=== PATIENT | male | born 1935 | race Caucasian/White ===

== ENCOUNTER 2017-10-08 19:14 | Emergency (ER) | payer MEDICARE ==
[~2017-10-08 19:14] MED LIST: ALBUTEROL NEB; ASPI-1197 PO; CARV3.12 PO; FURO40TA5 PO; INSLAN SQ; MAGNESIUM PO; PANT40TA25 PO; POTA10TA14 PO; PRAV40TA3 PO; RANO500T2 PO; RIVA20TA PO; SPIR25TA PO; SYMBICORT PO; TIOT18CA3 IH
[2017-10-08 20:20] LABS: BASOPHILS % (AUTO) 0.9 % (0.0-5.0); HEMATOCRIT 39.1 % (42-54); LYMPHOCYTES % (AUTO) 10.1 % (21.0-51.0); MEAN CORPUSCULAR HEMOGLOBIN 33.2 pg (27.0-33.0); MEAN CORPUSCULAR HGB CONC 33.1 g/dL (32.0-36.0); MEAN CORPUSCULAR VOLUME 100.4 fL (79-99); MONOCYTES % (AUTO) 11.1 % (3.0-13.0); NEUTROPHILS % (AUTO) 75.9 % (40.0-77.0); PLATELET COUNT (AUTO) 161 K/uL (130-400); WHITE BLOOD COUNT (AUTO) 11.1 K/uL (4.8-10.8)
[2017-10-08 21:17] LABS: CARBON DIOXIDE 31 mmol/L (21-32); CHLORIDE 98 mmol/L (101-111); CREATININE 1.7 mg/dL (0.5-1.5); GLOMERULAR FILTR. RATE CALC 41 mL/min (>60); GLUCOSE,RANDOM 108 mg/dL (70-105); POTASSIUM 3.7 mmol/L (3.5-5.1); SODIUM SERUM 135 mmol/L (136-145); UREA NITROGEN, BLOOD 25 mg/dL (7-18)
[2017-10-08 21:30] LABS: ALANINE AMINOTRANSFERASE 23 U/L (12-78); ALBUMIN 2.9 g/dL (3.5-5.0); ASPARTATE AMINOTRANSFERASE 27 U/L (10-37); BILIRUBIN,TOTAL 1.4 mg/dL (0.2-1.0); CREATINE KINASE MB < 0.5 ng/mL (0.5-3.6); CREATINE KINASE, TOTAL 70 U/L (21-232); TOTAL PROTEIN, SERUM 6.7 g/dL (6.0-8.3)
[2017-10-08] MEDS ORDERED: ONDANSETRON HCL 4 MG/2 ML VIAL ONE (21:58)
[2017-10-08] MEDS ORDERED: MORPHINE SULFATE 2 MG/ML 1ML SYG ONE ×2 (21:59→22:15)
[2017-10-08] MEDS ORDERED: FUROSEMIDE 10 MG/ML 4ML VIAL ONE (21:59)
[2017-10-08] MEDS ORDERED: GUAIFENESIN-CODEINE 5 ML SYRUP ONE ×2 (22:00→22:07)
== END 2017-10-08 22:28 | disposition home or self-care (01) ==
LOC: EDH 19:14
DX: M10.9 Gout, unspecified (principal); I50.9 Heart failure, unspecified; R05 Cough; J44.9 Chronic obstructive pulmonary disease, unspecified; I25.810 Atherosclerosis of coronary artery bypass graft(s) without angina pectoris; E11.9 Type 2 diabetes mellitus without complications; Z95.1 Presence of aortocoronary bypass graft; Z87.891 Personal history of nicotine dependence; Z85.118 Personal history of other malignant neoplasm of bronchus and lung; Z85.528 Personal history of other malignant neoplasm of kidney
CPT/HCPCS: 36415; 71045; 80053; 82550; 82553; 83880; 84484; 85025; 87804 ×2; 93005; 94761; 96374; 96375; 99285; J1940; J2405

== ENCOUNTER 2017-10-31 12:08 | Inpatient (IN) | payer MEDICARE ==
[~2017-10-31] VITALS: Ht 175.3 cm; Wt 83.6 kg
[2017-10-31 12:34] LABS: BASOPHILS % (AUTO) 0.8 % (0.0-5.0); EOSINOPHILS % (AUTO) 1.1 % (0.0-8.0); HEMATOCRIT 40.9 % (42-54); LYMPHOCYTES % (AUTO) 7.2 % (21.0-51.0); MEAN CORPUSCULAR HEMOGLOBIN 33.5 pg (27.0-33.0); MEAN CORPUSCULAR HGB CONC 34.2 g/dL (32.0-36.0); MONOCYTES % (AUTO) 2.7 % (3.0-13.0); NEUTROPHILS % (AUTO) 88.2 % (40.0-77.0); PLATELET COUNT (AUTO) 135 K/uL (130-400); RED BLOOD CELL COUNT(AUTO) 4.17 MIL/uL (4.50-6.20); WHITE BLOOD COUNT (AUTO) 8.4 K/uL (4.8-10.8)
[2017-10-31 12:41] LABS: CREATININE 1.7 mg/dL (0.5-1.5)
[2017-10-31 12:43] LABS: INR 1.07 (0.85-1.15); PARTIAL THROMBOPLASTIN TIME 28.9 SEC (26.3-35.5); PROTHROMBIN TIME 11.2 SEC (9.6-11.6)
[2017-10-31 12:55] LABS: ALBUMIN 3.3 g/dL (3.5-5.0); B-TYPE NATRIURETIC PEPTIDE 504 pg/mL (0-100); BILIRUBIN,TOTAL 1.6 mg/dL (0.2-1.0); CREATINE KINASE MB 0.6 ng/mL (0.5-3.6); TOTAL PROTEIN, SERUM 7.4 g/dL (6.0-8.3)
[2017-10-31 13:48] LABS: APPEARANCE,URINE CLEAR (CLEAR); BILIRUBIN,URINE NEGATIVE (NEGATIVE); COLOR,URINE YELLOW (YELLOW); GLUCOSE, URINE (UA) NEGATIVE (NEGATIVE); KETONES,URINE NEGATIVE (NEGATIVE); LEUKOCYTE ESTERASE ,URINE NEGATIVE (NEGATIVE); NITRATE,URINE NEGATIVE (NEGATIVE); OCCULT BLOOD,URINE NEGATIVE (NEGATIVE); PROTEIN,URINE TRACE (NEGATIVE)
[2017-10-31] MEDS ORDERED: BENZONATATE 100 MG CAPSULE PO ONE (13:56)
[2017-10-31] MEDS ORDERED: FUROSEMIDE 10 MG/ML 4ML VIAL ONE (13:56)
[2017-10-31] MEDS ORDERED: METHYLPREDNISOLONE SOD SUCC 40MG/ML 1ML ONE (13:56)
[2017-10-31] MEDS ORDERED: IPRATROPIUM/ALBUTEROL SULFATE 3 ML SOLUTION IH ONE (14:13)
[2017-10-31] MEDS ORDERED: LACTULOSE 20 GM/30 ML UDCUP PO PRN (14:15)
[2017-10-31] MEDS ORDERED: ACETAMINOPHEN 325 MG TAB PO PRN ×2 (14:15)
[2017-10-31] MEDS ORDERED: MAG HYDROX/AL HYDROX/SIMETH ES 30 ML SUSP UDCUP PO PRN (14:15)
[2017-10-31] MEDS ORDERED: POTASSIUM CHLORIDE 10% ELIXIR 20 MEQ/15 ML UDCUP PO PRN (14:15)
[2017-10-31] MEDS ORDERED: GUAIFENESIN-DM 200/20 MG 10 ML PO PRN (14:15)
[2017-10-31] MEDS ORDERED: POTASSIUM CHLORIDE 20MEQ/100ML 100 ML IV PRN (14:15)
[2017-10-31] MEDS ORDERED: MORPHINE SULFATE 2 MG/ML 1ML SYG IV PRN (14:15)
[2017-10-31] MEDS ORDERED: LIDOCAINE HCL-MPF 1% 2ML VIAL IVP PRN (14:15)
[2017-10-31] MEDS ORDERED: POTASSIUM CHLORIDE 20 MEQ ERTAB PO PRN (14:15)
[2017-10-31] MEDS ORDERED: NITROGLYCERIN 0.4 MG SL TAB SL PRN (14:15)
[2017-10-31] MEDS: METHYLPREDNISOLONE SOD SUCC 125MG/2ML VIAL IV SCH ×2 (14:15→21:21)
[2017-10-31] MEDS: DOXYCYCLINE 100MG+NS 250ML 250 ML IV SCH (14:15)
[2017-10-31] MEDS ORDERED: MORPHINE SULFATE 4 MG/1ML SYG IV PRN (14:15)
[2017-10-31] MEDS ORDERED: ONDANSETRON HCL 4 MG/2 ML VIAL IV PRN (14:15)
[2017-10-31] MEDS ORDERED: HYDRALAZINE HCL 20 MG/ML VIAL IV PRN (14:15)
[2017-10-31] MEDS ORDERED: ACETAMINOPHEN-CODEINE 300/30MG TAB PO PRN ×2 (14:15)
[2017-10-31 14:17] LABS: BACTERIA,URINE None Seen /HPF (None Seen); MUCUS,URINE Few LPF (None Seen); RBC,URINE None Seen /HPF (0-1); SQUAMOUS EPITHELIAL CELL,UR 0-2 /LPF (0-2); WBC,URINE None Seen /HPF (0-1)
[2017-10-31] MEDS: INSULIN HUMULIN R 100 UNIT/ML 3ML SQ SCH ×2 (16:30→21:39)
[2017-10-31] MEDS ORDERED: DOXYCYCLINE 100MG+NS 250ML 250 ML IV ONE (16:55)
[2017-10-31 17:35] VITALS: BP 103/60
[2017-10-31] MEDS ORDERED: IPRATROPIUM 0.5 MG/2.5 ML INH IH SCH (18:00)
[2017-10-31] MEDS: IPRATROPIUM/ALBUTEROL SULFATE 3 ML SOLUTION IH SCH (19:01)
[2017-10-31 19:19] VITALS: BP 117/68
[2017-10-31] MEDS: FUROSEMIDE 10 MG/ML 2ML VIAL IV SCH (21:21)
[2017-10-31] MEDS: FAMOTIDINE/PF 20 MG/2 ML VIAL IV SCH (21:21)
[2017-10-31] MEDS: BENZONATATE 100 MG CAPSULE PO SCH (21:22)
[2017-10-31] MEDS: CARVEDILOL 3.125 MG TABLET PO SCH (21:22)
[2017-10-31] MEDS: RIVAROXABAN 20 MG TABLET PO SCH (21:22)
[2017-10-31] MEDS: RANOLAZINE 500 MG TAB.SR.12H PO SCH (21:22)
[2017-10-31] MEDS: GUAIFENESIN-CODEINE 5 ML SYRUP PO PRN (21:37)
[2017-10-31] MEDS: INSULIN GLARGINE 100 UNITS/ML 10 ML VIAL SQ SCH (21:40)
[2017-10-31 23:28] VITALS: BP 120/66
[2017-11-01] MEDS ORDERED: DOXYCYCLINE 100MG+NS 250ML 250 ML IV ONE (01:33)
[2017-11-01] MEDS: DOXYCYCLINE 100MG+NS 250ML 250 ML IV SCH ×2 (01:40→13:47)
[2017-11-01] MEDS: ACETYLCYSTEINE 20% 200MG/ML 4ML VIAL IH SCH ×3 (01:46→11:31)
[2017-11-01] MEDS: IPRATROPIUM/ALBUTEROL SULFATE 3 ML SOLUTION IH SCH ×5 (01:46→23:37)
[2017-11-01 03:36] VITALS: BP 104/57
[2017-11-01 06:38] LABS: HEMATOCRIT 38.9 % (42-54); MEAN CORPUSCULAR HGB CONC 34.4 g/dL (32.0-36.0); NUCLEATED RED BLOOD CELLS 0.1 % (0.0-0.19); PLATELET COUNT (AUTO) 141 K/uL (130-400); RED BLOOD CELL COUNT(AUTO) 3.93 MIL/uL (4.50-6.20); RED CELL DISTRIBUTION WIDTH 17.1 % (11.0-15.5); WHITE BLOOD COUNT (AUTO) 4.4 K/uL (4.8-10.8)
[2017-11-01 06:41] VITALS: BP 110/56
[2017-11-01 06:48] LABS: CREATININE 1.9 mg/dL (0.5-1.5)
[2017-11-01] MEDS: INSULIN HUMULIN R 100 UNIT/ML 3ML SQ SCH ×4 (08:23→21:00)
[2017-11-01] MEDS: METHYLPREDNISOLONE SOD SUCC 125MG/2ML VIAL IV SCH ×2 (08:24→13:47)
[2017-11-01] MEDS: ASPIRIN 81MG TAB.CHEW PO SCH (08:52)
[2017-11-01] MEDS: GUAIFENESIN-CODEINE 5 ML SYRUP PO PRN (08:52)
[2017-11-01] MEDS: FAMOTIDINE/PF 20 MG/2 ML VIAL IV SCH (08:52)
[2017-11-01] MEDS: BENZONATATE 100 MG CAPSULE PO SCH ×2 (08:52→13:47)
[2017-11-01] MEDS: FUROSEMIDE 10 MG/ML 2ML VIAL IV SCH ×2 (08:52→09:32)
[2017-11-01] MEDS: RANOLAZINE 500 MG TAB.SR.12H PO SCH (08:53)
[2017-11-01] MEDS: CARVEDILOL 3.125 MG TABLET PO SCH (08:53)
[2017-11-01] MEDS ORDERED: ENOXAPARIN SODIUM 30 MG/0.3 ML SQ SCH (09:00)
[2017-11-01] MEDS ORDERED: ALLO100T PO (09:11)
[2017-11-01] MEDS ORDERED: AEC81 PO (09:11)
[2017-11-01] MEDS ORDERED: OMEP20TA2 PO (09:11)
[2017-11-01] MEDS ORDERED: MAGOX PO (09:11)
[2017-11-01] MEDS ORDERED: FLUT16H NASAL (09:11)
[2017-11-01] MEDS ORDERED: APIX2.5T PO (09:11)
[2017-11-01] MEDS ORDERED: BUDE10.22 IH (09:11)
[2017-11-01] MEDS ORDERED: CARV3.1262 PO (09:11)
[2017-11-01] MEDS ORDERED: SPIR25TA PO (09:11)
[2017-11-01] MEDS ORDERED: FURO20TA6 PO (09:11)
[2017-11-01 12:00] VITALS: BP 122/71
[2017-11-01 16:00] VITALS: BP 125/61
[2017-11-01] MEDS ORDERED: MORPHINE SULFATE 4 MG/1ML SYG IV PRN (16:15)
[2017-11-01 20:00] VITALS: BP 120/75
[2017-11-01] MEDS: INSULIN GLARGINE 100 UNITS/ML 10 ML VIAL SQ SCH (21:00)
[2017-11-02] VITALS: BP 130/78
[2017-11-02] MEDS: INSULIN GLARGINE 100 UNITS/ML 10 ML VIAL SQ SCH
[2017-11-02] MEDS: FAMOTIDINE/PF 20 MG/2 ML VIAL IV SCH ×2 (00:18→10:35)
[2017-11-02] MEDS: GUAIFENESIN-CODEINE 5 ML SYRUP PO PRN (00:19)
[2017-11-02] MEDS: RANOLAZINE 500 MG TAB.SR.12H PO SCH ×2 (00:19→10:38)
[2017-11-02] MEDS: CARVEDILOL 3.125 MG TABLET PO SCH ×2 (00:19→09:00)
[2017-11-02] MEDS: BENZONATATE 100 MG CAPSULE PO SCH ×2 (00:19→10:33)
[2017-11-02] MEDS: METHYLPREDNISOLONE SOD SUCC 125MG/2ML VIAL IV SCH ×2 (00:20→07:41)
[2017-11-02] MEDS: RIVAROXABAN 20 MG TABLET PO SCH (00:20)
[2017-11-02] MEDS: FUROSEMIDE 10 MG/ML 2ML VIAL IV SCH (00:20)
[2017-11-02] MEDS: DOXYCYCLINE 100MG+NS 250ML 250 ML IV SCH (02:39)
[2017-11-02 04:00] VITALS: BP 122/75
[2017-11-02 04:32] LABS: HEMATOCRIT 41.4 % (42-54); MEAN CORPUSCULAR HEMOGLOBIN 33.6 pg (27.0-33.0); MEAN CORPUSCULAR HGB CONC 33.7 g/dL (32.0-36.0); MEAN CORPUSCULAR VOLUME 99.6 fL (79-99); PLATELET COUNT (AUTO) 153 K/uL (130-400); RED BLOOD CELL COUNT(AUTO) 4.16 MIL/uL (4.50-6.20); WHITE BLOOD COUNT (AUTO) 13.5 K/uL (4.8-10.8)
[2017-11-02 04:42] LABS: CREATININE 2.3 mg/dL (0.5-1.5); POTASSIUM 4.1 mmol/L (3.5-5.1)
[2017-11-02 04:59] LABS: B-TYPE NATRIURETIC PEPTIDE 347 pg/mL (0-100)
[2017-11-02] MEDS: IPRATROPIUM 0.5 MG/2.5 ML INH IH SCH ×2 (06:24→11:12)
[2017-11-02] MEDS: INSULIN HUMULIN R 100 UNIT/ML 3ML SQ SCH ×3 (07:43→12:50)
[2017-11-02 07:44] VITALS: BP 130/74
[2017-11-02] MEDS ORDERED: FLUTICASONE PROPIONATE 50MCG/SPRAY 16 GM BOTTLE EN PRN (08:15)
[2017-11-02] MEDS ORDERED: ASPIRIN 81 MG EC TAB PO SCH (09:00)
[2017-11-02] MEDS ORDERED: ALLOPURINOL 100 MG TABLET PO SCH (09:00)
[2017-11-02] MEDS: ASPIRIN 81MG TAB.CHEW PO SCH (09:00)
[2017-11-02] MEDS ORDERED: CARVEDILOL 3.125 MG TABLET PO SCH (09:00)
[2017-11-02] MEDS ORDERED: METHYLPREDNISOLONE SOD SUCC 125MG/2ML VIAL IV SCH (09:00)
[2017-11-02] MEDS ORDERED: SPIRONOLACTONE 25 MG TAB PO SCH (09:00)
[2017-11-02 11:00] VITALS: BP 109/67
[2017-11-02] MEDS ORDERED: ALBUTEROL SULFATE 0.083% 2.5 MG/3 ML INH IH SCH (12:00)
[2017-11-02] MEDS ORDERED: FURO40TA5 PO (15:57)
[2017-11-02] MEDS ORDERED: BUDE10.2 IH (15:57)
[2017-11-02] MEDS ORDERED: ROBITUSSIN AC PO (16:01)
[2017-11-02] MEDS ORDERED: PRED20TA3 PO (16:01)
[2017-11-02] MEDS ORDERED: IPRNEB IH (16:01)
[2017-11-02] MEDS ORDERED: PRED10TA3 PO (16:01)
[2017-11-02] MEDS ORDERED: DOXY100C2 PO (16:01)
[2017-11-02] MEDS ORDERED: BUDESONIDE 0.5 MG/2 ML INH IH SCH (18:00)
[2017-11-02] MEDS ORDERED: FUROSEMIDE 20 MG TABLET PO SCH (21:00)
== END 2017-11-02 13:50 | disposition home or self-care (01) | DRG 291 ==
LOC: EDH 12:08 → EDHIP 14:05 → OBSVTOIN 14:05 → 3CH 17:19
PROVIDERS: ADMIT Internal Medicine; ATTEND Internal Medicine
DX: I13.0 Hypertensive heart and chronic kidney disease with heart failure and stage 1 through stage 4 chronic kidney disease, or unspecified chronic kidney disease (principal); I50.33 Acute on chronic diastolic (congestive) heart failure; J96.10 Chronic respiratory failure, unspecified whether with hypoxia or hypercapnia; E11.22 Type 2 diabetes mellitus with diabetic chronic kidney disease; J44.1 Chronic obstructive pulmonary disease with (acute) exacerbation; Z99.81 Dependence on supplemental oxygen; N18.3 Chronic kidney disease, stage 3 (moderate); I48.2 Chronic atrial fibrillation; Z79.01 Long term (current) use of anticoagulants; I25.10 Atherosclerotic heart disease of native coronary artery without angina pectoris; G47.30 Sleep apnea, unspecified; Z95.1 Presence of aortocoronary bypass graft; M10.9 Gout, unspecified; E78.5 Hyperlipidemia, unspecified; I48.0 Paroxysmal atrial fibrillation; Z87.891 Personal history of nicotine dependence; Z85.118 Personal history of other malignant neoplasm of bronchus and lung; Z83.3 Family history of diabetes mellitus; Z80.1 Family history of malignant neoplasm of trachea, bronchus and lung
CPT/HCPCS: 36415; 71045; 71250; 80048; 80053; 81001; 82550; 82553; 82948; 83880; 84484; 85025; 85027; 85610; 85730; 87040; 87804; 93005; 94640; 94664; J1815; J1940; J2405; J2920; J2930; J3490; J7608

== ENCOUNTER 2017-11-04 06:45 | Observation (INO) | payer MEDICARE ==
[2017-11-02 14:53] VITALS: BP 106/69
[2017-11-02 15:19] LABS: BASOPHILS % (AUTO) 0.1 % (0.0-5.0); HEMATOCRIT 42.6 % (42-54); LYMPHOCYTES % (AUTO) 2.5 % (21.0-51.0); MEAN CORPUSCULAR HEMOGLOBIN 33.2 pg (27.0-33.0); MEAN CORPUSCULAR HGB CONC 33.4 g/dL (32.0-36.0); MEAN CORPUSCULAR VOLUME 99.4 fL (79-99); MONOCYTES % (AUTO) 2.2 % (3.0-13.0); NEUTROPHILS % (AUTO) 95.2 % (40.0-77.0); PLATELET COUNT (AUTO) 170 K/uL (130-400); RED BLOOD CELL COUNT(AUTO) 4.29 MIL/uL (4.50-6.20); RED CELL DISTRIBUTION WIDTH 16.8 % (11.0-15.5); WHITE BLOOD COUNT (AUTO) 16.1 K/uL (4.8-10.8)
[2017-11-02 15:27] LABS: CREATININE 2.1 mg/dL (0.5-1.5); POTASSIUM 4.3 mmol/L (3.5-5.1)
[~2017-11-04] VITALS: Ht 171.4 cm; Wt 85.8 kg
[2017-11-04] VITALS (12 sets, daily range): BP systolic 112–129; BP diastolic 54–80
[~2017-11-04 06:45] MED LIST changes: +AEC81 PO; -ALBUTEROL NEB; +ALLO100T PO; +APIX2.5T PO; -ASPI-1197 PO; +BUDE10.2 IH; -CARV3.12 PO; +CARV3.1262 PO; +DOXY100C2 PO; +FLUT16H NASAL; +IPRNEB IH; -MAGNESIUM PO; +OMEP20TA2 PO; -PANT40TA25 PO; -POTA10TA14 PO; +PRED10TA3 PO; +PRED20TA3 PO; -RIVA20TA PO; +ROBITUSSIN AC PO; +SODIUM CHLORIDE 0.9% 1000ML 1,000 ML IV SCH; -SYMBICORT PO
[2017-11-04] MEDS ORDERED: LIDOCAINE HCL 2% 20ML ONE (08:06)
[2017-11-04] MEDS ORDERED: HEPARIN SODIUM 1000UNIT/ML 10ML VIAL ONE (08:06)
[2017-11-04] MEDS ORDERED: MIDAZOLAM HCL 1 MG/ML 2ML VIAL ONE ×2 (08:07→09:38)
[2017-11-04] MEDS ORDERED: MEPERIDINE-PF 50 MG/ML SYG ONE (08:07)
[2017-11-04] MEDS ORDERED: IPRATROPIUM 0.5 MG/2.5 ML INH IH PRN (11:45)
[2017-11-04] MEDS ORDERED: FLUTICASONE PROPIONATE 50MCG/SPRAY 16 GM BOTTLE EN PRN (11:45)
[2017-11-04] MEDS ORDERED: ALBUTEROL SULFATE 0.083% 2.5 MG/3 ML INH IH SCH (12:45)
[2017-11-04] MEDS: GUAIFENESIN-CODEINE 5 ML SYRUP PO PRN ×2 (14:46→21:38)
[2017-11-04] MEDS: INSULIN HUMULIN R 100 UNIT/ML 3ML SQ SCH ×2 (17:34→21:00)
[2017-11-04] MEDS: TRAMADOL HCL 50 MG TABLET PO SCH ×2 (17:38→23:49)
[2017-11-04] MEDS: IPRATROPIUM 0.5 MG/2.5 ML INH IH SCH ×2 (18:26→23:53)
[2017-11-04] MEDS: DOXYCYCLINE HYCLATE 100 MG TABLET PO SCH (20:43)
[2017-11-04] MEDS: BENZONATATE 100 MG CAPSULE PO PRN (20:44)
[2017-11-04] MEDS: RANOLAZINE 500 MG TAB.SR.12H PO SCH (20:44)
[2017-11-04] MEDS ORDERED: ATORVASTATIN CALCIUM 20 MG TABLET PO SCH (21:00)
[2017-11-04] MEDS ORDERED: FUROSEMIDE 40 MG TABLET PO SCH (21:00)
[2017-11-04] MEDS ORDERED: INSULIN GLARGINE 100 UNITS/ML 10 ML VIAL SQ SCH (21:00)
[2017-11-04] MEDS: APIXABAN 2.5 MG TABLET PO SCH (21:38)
[2017-11-05] MEDS: GUAIFENESIN-CODEINE 5 ML SYRUP PO PRN ×2 (02:43→09:22)
[2017-11-05] MEDS: TRAMADOL HCL 50 MG TABLET PO SCH ×2 (02:45→08:45)
[2017-11-05] MEDS: BENZONATATE 100 MG CAPSULE PO PRN ×2 (03:35→09:49)
[2017-11-05 04:26] LABS: CREATININE 1.6 mg/dL (0.5-1.5); POTASSIUM 3.4 mmol/L (3.5-5.1)
[2017-11-05] MEDS: INSULIN HUMULIN R 100 UNIT/ML 3ML SQ SCH ×2 (06:00→11:30)
[2017-11-05] MEDS: IPRATROPIUM 0.5 MG/2.5 ML INH IH SCH ×2 (07:04→11:01)
[2017-11-05 07:53] VITALS: BP 138/81
[2017-11-05] MEDS ORDERED: ALLOPURINOL 100 MG TABLET PO SCH (09:00)
[2017-11-05] MEDS ORDERED: CARVEDILOL 3.125 MG TABLET PO SCH (09:00)
[2017-11-05] MEDS ORDERED: SPIRONOLACTONE 25 MG TAB PO SCH (09:00)
[2017-11-05] MEDS ORDERED: SYMBICORT 160/4.5 IH SCH (09:00)
[2017-11-05] MEDS ORDERED: PREDNISONE 20 MG TABLET PO SCH (09:00)
[2017-11-05] MEDS ORDERED: SUB TO IPRATROPIUM 0.5MG/2.5ML PER P&T IH SCH (09:00)
[2017-11-05] MEDS ORDERED: FUROSEMIDE 40 MG TABLET PO SCH (09:00)
[2017-11-05] MEDS ORDERED: PREDNISONE 10 MG TABLET PO SCH (09:00)
[2017-11-05] MEDS: RANOLAZINE 500 MG TAB.SR.12H PO SCH (09:20)
[2017-11-05] MEDS: DOXYCYCLINE HYCLATE 100 MG TABLET PO SCH (09:20)
[2017-11-05] MEDS: APIXABAN 2.5 MG TABLET PO SCH (09:54)
[2017-11-05 11:10] VITALS: BP 142/89
[2017-11-06] MEDS ORDERED: PANTOPRAZOLE SODIUM 40 MG TABLET.DR PO SCH (06:30)
[2017-11-06] MEDS ORDERED: ASPIRIN 81 MG EC TAB PO SCH (09:00)
== END 2017-11-05 14:00 | disposition home or self-care (01) ==
LOC: DAH 06:45 → DAHIP 06:46 → 2AH 11:55
PROVIDERS: ADMIT Internal Medicine; ATTEND Internal Medicine
DX: I48.92 Unspecified atrial flutter (principal); I13.0 Hypertensive heart and chronic kidney disease with heart failure and stage 1 through stage 4 chronic kidney disease, or unspecified chronic kidney disease; I50.32 Chronic diastolic (congestive) heart failure; N18.3 Chronic kidney disease, stage 3 (moderate); J44.9 Chronic obstructive pulmonary disease, unspecified; J96.10 Chronic respiratory failure, unspecified whether with hypoxia or hypercapnia; I48.91 Unspecified atrial fibrillation; I25.10 Atherosclerotic heart disease of native coronary artery without angina pectoris; E11.22 Type 2 diabetes mellitus with diabetic chronic kidney disease; E78.5 Hyperlipidemia, unspecified; Z83.3 Family history of diabetes mellitus; Z85.118 Personal history of other malignant neoplasm of bronchus and lung; Z87.891 Personal history of nicotine dependence; Z95.1 Presence of aortocoronary bypass graft; Z99.81 Dependence on supplemental oxygen
CPT/HCPCS: 36415 ×2; 80048 ×2; 82948 ×5; 85025; 93005; 93613; 93621; 93653; 94640 ×5; 94660; 94664; 96372; A4606; A4649; C1730 ×2; C1732; C1893; C1894 ×2; G0378 ×31; J1644; J1815; J2175; J2250 ×2; J3490; J7512; 99152; 99153

== ENCOUNTER 2018-11-30 08:53 | Emergency (ER) | payer MEDICARE ==
[~2018-11-30 08:53] MED LIST changes: -CARV3.1262 PO; -SODIUM CHLORIDE 0.9% 1000ML 1,000 ML IV SCH
[2018-11-30] MEDS ORDERED: NEOMY SULF/BACITRA/POLYMYXIN B 1 EACH PACKET TP ONE (09:35)
[2018-11-30 09:58] LABS: BASOPHILS % (AUTO) 1.1 % (0.0-5.0); EOSINOPHILS % (AUTO) 1.7 % (0.0-8.0); HEMATOCRIT 41.9 % (42-54); LYMPHOCYTES % (AUTO) 15.7 % (21.0-51.0); MEAN CORPUSCULAR HEMOGLOBIN 33.9 pg (27.0-33.0); MEAN CORPUSCULAR HGB CONC 33.2 g/dL (32.0-36.0); MEAN CORPUSCULAR VOLUME 102.2 fL (79-99); MONOCYTES % (AUTO) 8.9 % (3.0-13.0); NEUTROPHILS % (AUTO) 72.6 % (40.0-77.0); NUCLEATED RED BLOOD CELLS 0.1 % (0.0-0.19); PLATELET COUNT (AUTO) 123 K/uL (130-400); RED BLOOD CELL COUNT(AUTO) 4.11 MIL/uL (4.50-6.20); WHITE BLOOD COUNT (AUTO) 7.7 K/uL (4.8-10.8)
[2018-11-30 10:07] LABS: CREATININE 1.6 mg/dL (0.5-1.5)
[2018-11-30 10:12] LABS: ALBUMIN 3.6 g/dL (3.5-5.0); BILIRUBIN,TOTAL 1.4 mg/dL (0.2-1.0); TOTAL PROTEIN, SERUM 7.2 g/dL (6.0-8.3)
== END 2018-11-30 12:27 | disposition home or self-care (01) ==
LOC: EDH 08:53
DX: S22.31XA Fracture of one rib, right side, initial encounter for closed fracture (principal); J44.9 Chronic obstructive pulmonary disease, unspecified; E11.9 Type 2 diabetes mellitus without complications; I25.810 Atherosclerosis of coronary artery bypass graft(s) without angina pectoris; Z98.890 Other specified postprocedural states; Z95.1 Presence of aortocoronary bypass graft; Z85.528 Personal history of other malignant neoplasm of kidney; Z85.118 Personal history of other malignant neoplasm of bronchus and lung; Z87.891 Personal history of nicotine dependence; W01.0XXA Fall on same level from slipping, tripping and stumbling without subsequent striking against object, initial encounter; Y93.89 Activity, other specified; Y92.89 Other specified places as the place of occurrence of the external cause; Y99.8 Other external cause status
CPT/HCPCS: 36415; 71101; 71250; 80053; 84484; 85025; 93005

== ENCOUNTER 2018-12-17 20:34 | Emergency (ER) | payer MEDICARE ==
[2018-12-17 21:08] LABS: EOSINOPHILS % (AUTO) 1.2 % (0.0-8.0); HEMATOCRIT 41.8 % (42-54); LYMPHOCYTES % (AUTO) 12.7 % (21.0-51.0); MEAN CORPUSCULAR HEMOGLOBIN 34.4 pg (27.0-33.0); MEAN CORPUSCULAR HGB CONC 33.4 g/dL (32.0-36.0); MEAN CORPUSCULAR VOLUME 102.9 fL (79-99); MONOCYTES % (AUTO) 9.2 % (3.0-13.0); NEUTROPHILS % (AUTO) 75.9 % (40.0-77.0); PLATELET COUNT (AUTO) 121 K/uL (130-400); RED BLOOD CELL COUNT(AUTO) 4.06 MIL/uL (4.50-6.20); RED CELL DISTRIBUTION WIDTH 15.5 % (11.0-15.5); WHITE BLOOD COUNT (AUTO) 10.5 K/uL (4.8-10.8)
[2018-12-17 21:18] LABS: CREATININE 1.7 mg/dL (0.5-1.5)
[2018-12-17 21:21] LABS: POTASSIUM 2.9 mmol/L (3.5-5.1)
[2018-12-17] MEDS ORDERED: POTASSIUM CHLORIDE 20 MEQ ERTAB PO ONE (21:25)
[2018-12-17 21:26] LABS: INR 1.02 (0.85-1.15); PARTIAL THROMBOPLASTIN TIME 30.7 SEC (26.3-35.5); PROTHROMBIN TIME 10.7 SEC (9.6-11.6)
== END 2018-12-17 22:46 | disposition home or self-care (01) ==
LOC: EDH 20:34
DX: M25.461 Effusion, right knee (principal); I50.1 Left ventricular failure, unspecified; N18.9 Chronic kidney disease, unspecified; R09.02 Hypoxemia; E87.6 Hypokalemia; E11.22 Type 2 diabetes mellitus with diabetic chronic kidney disease; I25.810 Atherosclerosis of coronary artery bypass graft(s) without angina pectoris; J44.9 Chronic obstructive pulmonary disease, unspecified; Z85.118 Personal history of other malignant neoplasm of bronchus and lung; Z85.528 Personal history of other malignant neoplasm of kidney
CPT/HCPCS: 36415; 73562; 80048; 85025; 85610; 85730

== ENCOUNTER 2019-01-02 07:04 | Day surgery (SDC) | payer MEDICARE ==
[2019-01-02 07:47] LABS: BASOPHILS % (AUTO) 0.9 % (0.0-5.0); EOSINOPHILS % (AUTO) 2.3 % (0.0-8.0); HEMATOCRIT 42.7 % (42-54); LYMPHOCYTES % (AUTO) 20.3 % (21.0-51.0); MEAN CORPUSCULAR HEMOGLOBIN 35.1 pg (27.0-33.0); MEAN CORPUSCULAR VOLUME 103.2 fL (79-99); MONOCYTES % (AUTO) 9.6 % (3.0-13.0); NEUTROPHILS % (AUTO) 66.9 % (40.0-77.0); NUCLEATED RED BLOOD CELLS 0.1 % (0.0-0.19); PLATELET COUNT (AUTO) 111 K/uL (130-400); RED BLOOD CELL COUNT(AUTO) 4.14 MIL/uL (4.50-6.20); RED CELL DISTRIBUTION WIDTH 15.4 % (11.0-15.5); WHITE BLOOD COUNT (AUTO) 5.4 K/uL (4.8-10.8)
[2019-01-02 07:52] LABS: CREATININE 1.6 mg/dL (0.5-1.5); POTASSIUM 4.3 mmol/L (3.5-5.1)
[2019-01-02 07:56] LABS: INR 1.04 (0.85-1.15); PARTIAL THROMBOPLASTIN TIME 29.2 SEC (26.3-35.5); PROTHROMBIN TIME 10.9 SEC (9.6-11.6)
[2019-01-02 07:57] LABS: ALBUMIN 3.6 g/dL (3.5-5.0); BILIRUBIN,TOTAL 1.2 mg/dL (0.2-1.0); TOTAL PROTEIN, SERUM 6.8 g/dL (6.0-8.3)
[2019-01-02] MEDS ORDERED: FENTANYL CITRATE PF 50 MCG/1 ML 2ML VIAL ONE (08:57)
[2019-01-02] MEDS ORDERED: MIDAZOLAM HCL 1 MG/ML 2ML VIAL ONE (08:58)
--- NOTE | 2019-01-02 09:40 | NUR ---
CT GD BX OF LEFT LUNG MASS NOT PERFORMED CT OF THE CHEST PERFORMED. DR AVILA READ EXAM AND NOTED THE AREA OF SUSPICION IS RESOLVING. DR. AVILA INFORMED THE PATIENT AND CALLED DR. ZUNIGA TO INFORM HIM OF THE CT RESULTS. REPORT GIVEN TO NIRMALA MICHELLE AND PATIENT TRANSPORTED TO [facility] VIA BED. PT STABLE, AAO X3 WITH NO C/O PAIN.
== END 2019-01-02 10:25 | disposition home or self-care (01) ==
LOC: RAH 07:04 → EDSTATUS 08:00 → RAH 10:25
PROVIDERS: ATTEND Internal Medicine
DX: R91.8 Other nonspecific abnormal finding of lung field (principal); Z53.9 Procedure and treatment not carried out, unspecified reason; Z79.01 Long term (current) use of anticoagulants; Z79.899 Other long term (current) drug therapy; Z98.890 Other specified postprocedural states
CPT/HCPCS: 36415; 71250; 80053; 85025; 85610; 85730; J2250; J3010

== ENCOUNTER → 2019-11-16 | Outpatient (CLI) | payer MEDICARE ==
--- NOTE | 2019-11-16 11:40 | NUR ---
MBSS COMPLETED. NON-TRANSIENT PENETRATION WITH THIN LIQUIDS AND TRANSIENT PENETRATION WITH NECTAR-THICK LIQUIDS (SILENT). RECOMMEND REGULAR TEXTURE, HONEY-THICK LIQUIDS; PILLS WHOLE WITH LIQUIDS (HONEY-THICK). RECOMMENDATIONS: 1. SKILLED SPEECH THERAPY 2-3X WEEK FOR 4-6 WEEKS. *RECOMMEND NEUROMUSCULAR ELECTRICAL STIMULATION (NMES) THERAPEUTIC INTERVENTION 2. REPEAT MBSS AFTER THERAPEUTIC INTERVENTION. DAY CARE HOME PROVIDER PROVIDED EDUCATION ON RISKS AND CONSEQUENCES OF ASPIRATION. A WRITTEN HANDOUT WITH RESULTS AND RECOMMENDATIONS PROVIDED. DAY CARE HOME PROVIDER DEMONSTRATED HOW TO REACH HONEY-THICK LIQUIDS AND A CAN OF THICKENER WAS PROVIDED. ALL QUESTIONS ANSWERED AT THIS TIME. Addendum: 11/16/19 at 1151 by BERNA DAVENPORT [facility] Amended: Links added.
== END | disposition home or self-care (01) ==
LOC: RAH 09:39
PROVIDERS: ATTEND Nurse Practitioner Adult Health
DX: R13.12 Dysphagia, oropharyngeal phase (principal); I50.9 Heart failure, unspecified; J44.9 Chronic obstructive pulmonary disease, unspecified; E11.9 Type 2 diabetes mellitus without complications; Z85.9 Personal history of malignant neoplasm, unspecified
CPT/HCPCS: 74230; 92611

== ENCOUNTER → 2019-11-30 | Outpatient (CLI) | payer MEDICARE | END | disposition home or self-care (01) | LOC: RAH 11:10 | PROVIDERS: ATTEND Nurse Practitioner Adult Health | DX: I50.9 Heart failure, unspecified (principal); I70.0 Atherosclerosis of aorta; M47.814 Spondylosis without myelopathy or radiculopathy, thoracic region; Z95.0 Presence of cardiac pacemaker | CPT/HCPCS: 71046 ==

== ENCOUNTER → 2020-02-06 | Outpatient (CLI) | payer MEDICARE | END | disposition home or self-care (01) | LOC: SHCH 13:09 | PROVIDERS: ATTEND Internal Medicine Cardiovascular Disease | DX: I08.8 Other rheumatic multiple valve diseases (principal); I25.10 Atherosclerotic heart disease of native coronary artery without angina pectoris | CPT/HCPCS: 93306; 93356 ==

== ENCOUNTER 2020-07-30 07:16 | Day surgery (SDC) | payer MEDICARE ==
[~2020-07-30] VITALS: Ht 172.7 cm; Wt 68.9 kg
[~2020-07-30 07:16] MED LIST changes: -BUDE10.2 IH; +CARV3.12 PO; -DOXY100C2 PO; +FERR1TAB22 PO; +HYDR-3422 PO; -IPRNEB IH; -PRED10TA3 PO; -PRED20TA3 PO; -RANO500T2 PO; -ROBITUSSIN AC PO; +SODIUM CHLORIDE 0.9% 1000ML 1,000 ML IV ONE; -SPIR25TA PO; -TIOT18CA3 IH
[2020-07-30 08:00] VITALS: BP 107/59
[2020-07-30] MEDS ORDERED: PROPOFOL 10 MG/ML 20ML VIAL IV ONE (09:51)
[2020-07-30] MEDS ORDERED: MIDAZOLAM HCL 1 MG/ML 2ML VIAL ONE (09:51)
[2020-07-30] MEDS ORDERED: PHENYLEPHRINE HCL 10 MG/ML 1ML VIAL IV ONE (10:00)
[2020-07-30 10:15] VITALS: BP 111/63
[2020-07-30 10:20] VITALS: BP 106/66
[2020-07-30 10:30] VITALS: BP 111/58
[2020-07-30 10:35] VITALS: BP 105/61
[2020-07-30 10:51] VITALS: BP 109/59
== END 2020-07-30 11:00 | disposition home or self-care (01) ==
LOC: DAH 07:16 → ENDO 07:16
PROVIDERS: ATTEND Internal Medicine Gastroenterology
DX: R10.13 Epigastric pain (principal); K22.2 Esophageal obstruction; K29.50 Unspecified chronic gastritis without bleeding; R68.81 Early satiety; I10 Essential (primary) hypertension; I25.10 Atherosclerotic heart disease of native coronary artery without angina pectoris; M10.9 Gout, unspecified; E78.49 Other hyperlipidemia; E11.9 Type 2 diabetes mellitus without complications; J44.9 Chronic obstructive pulmonary disease, unspecified; Z95.5 Presence of coronary angioplasty implant and graft; Z96.642 Presence of left artificial hip joint; Z85.118 Personal history of other malignant neoplasm of bronchus and lung; Z20.828 Contact with and (suspected) exposure to other viral communicable diseases; Z95.1 Presence of aortocoronary bypass graft
CPT/HCPCS: 43239; 43248; 82948 ×2; 88305; 88342; 93005; A4215; A4221; A4222; A4223; A4606; A4620; A4657 ×2; A4663; C9803; J2250; J2370; J2704; J7030; U0003

== ENCOUNTER 2020-09-15 02:26 | Emergency (ER) | payer MEDICARE ==
[~2020-09-15 02:26] MED LIST changes: -AEC81 PO; -SODIUM CHLORIDE 0.9% 1000ML 1,000 ML IV ONE
[2020-09-15] MEDS ORDERED: ONDANSETRON HCL 4 MG/2 ML VIAL ONE (02:32)
[2020-09-15] MEDS ORDERED: MECLIZINE HCL 25 MG TABLET ONE (03:01)
[2020-09-15 03:33] LABS: BASOPHILS % (AUTO) 0.5 % (0.0-5.0); EOSINOPHILS % (AUTO) 0.2 % (0.0-8.0); LYMPHOCYTES % (AUTO) 19.8 % (21.0-51.0); MEAN CORPUSCULAR HEMOGLOBIN 35.1 pg (27.0-33.0); MEAN CORPUSCULAR HGB CONC 35.1 g/dL (32.0-36.0); MONOCYTES % (AUTO) 7.7 % (3.0-13.0); NEUTROPHILS % (AUTO) 71.6 % (40.0-77.0); PLATELET COUNT (AUTO) 110 K/uL (130-400); RED CELL DISTRIBUTION WIDTH 15.4 % (11.0-15.5); WHITE BLOOD COUNT (AUTO) 5.6 K/uL (4.8-10.8)
[2020-09-15 03:53] LABS: ALBUMIN 3.3 g/dL (3.5-5.0); TOTAL PROTEIN, SERUM 6.7 g/dL (6.0-8.3)
[2020-09-15] MEDS ORDERED: POTASSIUM CHLORIDE 20 MEQ ERTAB PO ONE (03:55)
[2020-09-15 04:46] LABS: INR 1.18 (0.85-1.15); PROTHROMBIN TIME 12.4 SEC (9.6-11.6)
[2020-09-15 04:48] LABS: PARTIAL THROMBOPLASTIN TIME 29.2 SEC (26.3-35.5)
== END 2020-09-15 04:35 | disposition home or self-care (01) ==
LOC: EDH 02:26
DX: S00.03XA Contusion of scalp, initial encounter (principal); S50.812A Abrasion of left forearm, initial encounter; S50.811A Abrasion of right forearm, initial encounter; H81.4 Vertigo of central origin; E11.9 Type 2 diabetes mellitus without complications; I25.10 Atherosclerotic heart disease of native coronary artery without angina pectoris; J44.9 Chronic obstructive pulmonary disease, unspecified; Z85.118 Personal history of other malignant neoplasm of bronchus and lung; W01.198A Fall on same level from slipping, tripping and stumbling with subsequent striking against other object, initial encounter; Y93.89 Activity, other specified; Y92.89 Other specified places as the place of occurrence of the external cause; Y99.8 Other external cause status
CPT/HCPCS: 36415; 70450; 72125; 80053; 85025; 85610; 85730; 93005; 96374; 99285; J2405

== ENCOUNTER → 2020-11-21 | Outpatient (CLI) | payer MEDICARE | END | disposition home or self-care (01) | LOC: RAH 10:33 | PROVIDERS: ATTEND Family Medicine | DX: K57.30 Diverticulosis of large intestine without perforation or abscess without bleeding (principal); K40.90 Unilateral inguinal hernia, without obstruction or gangrene, not specified as recurrent; K46.9 Unspecified abdominal hernia without obstruction or gangrene; N32.89 Other specified disorders of bladder; I70.90 Unspecified atherosclerosis | CPT/HCPCS: 72192 ==